=== PATIENT | female | born 1940 | race African-American/Black ===

== ENCOUNTER 2018-06-22 19:24 | Inpatient (IN) | payer OTHER ==
[2018-06-22 20:01] VITALS: BMI 26.4
[2018-06-22 21:36] LABS: BASO % 0.8 % (0-2.0); HEMOGLOBIN 9.5 GM/dL (10.7-15.3); LYMPH % 10.8 % (8-40); MCH 27.1 pg (25.7-33.7); MCHC 32.6 g/dl (32.0-36.0); MEAN CELL VOLUME 83.2 fl (80-96); MEAN PLT VOLUME 7.9 fl (7.5-11.1); MONO % 3.4 % (3.8-10.2); PLATELET COUNT 998 K/MM3 (134-434); RBC 3.48 M/mm3 (3.60-5.2); RDW 27.2 % (11.6-15.6); WHITE BLOOD COUNT 15.2 K/mm3 (4.0-10.0)
[2018-06-22 21:50] LABS: INR 1.12 (0.83-1.09); PROTHROMBIN TIME (PATIENT) 13.2 SEC (9.7-13.0)
[2018-06-22 21:53] LABS: ACTIVATED PTT 28.8 SECONDS (25.2-36.5)
--- NOTE | 2018-06-22 22:11 | PDOC ---
Attending Attestation - Physicial Exam PE: 06/22/18 22:55 GENERAL: Well-appearing, well-nourished. No apparent distress. HEENT: Normocephalic, atraumatic. PERRL, EOM intact. CARDIOVASCULAR: Normal S1, S2. Regular rate and rhythm. PULMONARY: Clear to auscultation bilaterally. ABDOMEN: Soft, non-distended, non-tender. +EXTREMITIES: Mild swelling to the dorsal surface of the right foot. SKIN: Warm, dry. No rash NEUROLOGICAL: No focal neurological deficits. - Medical Decision Making 06/23/18 Patient admitted to hospitalist team for further evaluation. <Odalys Elena - Last Filed: 06/23/18 01:19> - Resident Resident Name: Ravin Urbina - ED Attending Attestation I have performed the following: I have examined & evaluated the patient, The case was reviewed & discussed with the resident, I agree w/resident's findings & plan, Exceptions are as noted - HPI HPI: 06/22/18 22:10 77-year-old female took a 17 hour bus ride up from [place] and now has complaint of palpitations - Medical Decision Making 06/23/18 02:23 negative duplex doppler negative first trop elevated creatinine ,unable to obtain chest CTA will admit to telemetry for repeat trop, obtain VQ scan in am currently pt has no shortness of breath,no hypoxia, her heart rate has been stable in the mid 70s <Dia Nelson - Last Filed: 06/23/18 02:27> Attestations - Attestations 06/22/18 22:56 Documentation prepared by Odalys Elena, acting as senior medical billing specialist for Dia Nelson MD. <Odalys Elena - Last Filed: 06/23/18 01:19>
--- NOTE | 2018-06-22 22:17 | PDOC ---
History of Present Illness - General Chief Complaint: Palpitations Stated Complaint: WEAKNESS/PALPITATIONS Time Seen by Provider: 06/22/18 20:23 History Source: Patient Exam Limitations: No Limitations - History of Present Illness Initial Comments: 06/22/18 22:44 77 yo female from [place] (new to our ER) pmh DM (no medications required), HTN , HLD and s/p cardiac stent 2 months (only on 81 mg asa, no AC) ago presents to the ED for CP and leg swelling. Pt states she recently took a 17 hour bus trip from [place] and noted progressively worsening swelling bilateral LE, right worse than left but states she had sudden onset non exertional CP today, non radiating described as sharp. Past History - Past Medical History Allergies/Adverse Reactions: Allergies Allergy/AdvReac Type Severity Reaction Status Date / Time Penicillins Allergy Severe Swelling Verified 06/22/18 21:10 Home Medications: Ambulatory Orders Amlodipine Besylate [Norvasc -] 5 mg PO DAILY 06/22/18 Aspirin 81 mg PO DAILY 06/22/18 Cholecalciferol (Vitamin D3) [Vitamin D3] 1,000 unit PO DAILY 06/22/18 Tramadol HCl [Ultram] 50 mg PO DAILY PRN 06/22/18 Cardiac Disorders: Yes (Palpitations) COPD: No Diabetes: No (Controlled w/weight loss) HTN: Yes Hypercholesterolemia: No (Controlled w/weight loss) - Suicide/Smoking/Psychosocial Hx Smoking History: Never smoked Have you smoked in the past 12 months: No Information on smoking cessation initiated: No Hx Alcohol Use: No Drug/Substance Use Hx: No *Physical Exam - Vital Signs Last Vital Signs Temp Pulse Resp BP Pulse Ox 97.7 F 79 17 173/75 H 96 06/22/18 19:24 06/22/18 19:24 06/22/18 19:24 06/22/18 19:24 06/22/18 21:15 Moderate Sedation - Procedure Monitoring Vital Signs: Procedure Monitoring Vital Signs Temperature 97.7 F 06/22/18 19:24 Pulse Rate 79 06/22/18 19:24 Respiratory Rate 17 06/22/18 19:24 Blood Pressure 173/75 H 06/22/18 19:24 O2 Sat by Pulse Oximetry (%) 96 06/22/18 21:15 ED Treatment Course - LABORATORY CBC & Chemistry Diagram: 06/22/18 21:20 06/22/18 21:20 - ADDITIONAL ORDERS Additional order review: Laboratory Results 06/22/18 21:20 PT with INR 13.20 H INR 1.12 H PTT (Actin FS) 28.8 06/22/18 21:20 RBC 3.48 L MCV 83.2 MCHC 32.6 RDW 27.2 H MPV 7.9 Neutrophils % 83.0 H Lymphocytes % 10.8 Monocytes % 3.4 L Eosinophils % 2.0 Basophils % 0.8 - RADIOLOGY Radiology Studies Ordered: Category Date Time Status CHEST CTA [CT] Stat CT Scan 06/22/18 21:15 Ordered Medical Decision Making - Medical Decision Making 77 yo female recent PCI and recent travel presents with bilateral leg swelling and CP. Pt states she was told she has "slow heart beat" and had discussions with potentially putting a pace maker in with Cardiology in [place] EKG shows Mobitz type [address] changes DDX INLT: ACS, PE, DVT, CHF, arrhythmia 06/22/18 22:13 pt took 81 mg asa today with pain relief Vitals elevated BP (took medications today) otherwise WNL NAD, AOX3 CTA ordered however Cr elevated, duplex bilateral LE ordered, negative for DVT D dimer elevated, will admit for further cardiac assessment (ACS/CHF/PE) Pt accepted for admission to tele *DC/Admit/Observation/Transfer Diagnosis at time of Disposition: Ruled out for myocardial infarction, Chest pain, Renal insufficiency - Discharge Dispostion Condition at time of disposition: Fair Decision to Admit order: Yes - Referrals - Patient Instructions - Post Discharge Activity
[2018-06-22 22:18] LABS: ALK PHOS 135 U/L (45-117); ANION GAP 5 MMOL/L (8-16); BILIRUBIN,TOTAL 0.4 mg/dL (0.2-1); BLOOD UREA NITROGEN 23 mg/dL (7-18); CALCIUM 8.5 mg/dL (8.5-10.1); CHLORIDE 109 mmol/L (98-107); CO2 26 mmol/L (21-32); CREATININE 1.7 mg/dL (0.55-1.3); GLUCOSE,RANDOM 103 mg/dL (74-106); POTASSIUM 5.2 mmol/L (3.5-5.1); SGOT/AST 23 U/L (15-37); SGPT/ALT 20 U/L (13-61); SODIUM 140 mmol/L (136-145); TOT PROT 8.2 g/dl (6.4-8.2)
[2018-06-22 23:12] LABS: ANISOCYTOSIS 3+
[2018-06-22 23:13] LABS: PLATELET ESTIMATE SIGNIFICANT INCREASE
[2018-06-23] MEDS ORDERED: ASPIRIN 81 MG CHEWABLE TABLETS PO ONE (00:55)
--- NOTE | 2018-06-23 01:19 | PN ---
Teaching Attending Note Name of Resident: Dawson Haile ATTENDING PHYSICIAN STATEMENT I saw and evaluated the patient. I reviewed the resident's note and discussed the case with the resident. I agree with the resident's findings and plan as documented. SUBJECTIVE: Seen and examined; please refer to resident note for further historical discussion. Briefly, she is a 77 y/o female presenting from out of town; she lives in [place] and will be returning at the end of the month (arrived in [place] ~1 week ago). Her CC is chest pain; she states it's similar to when she got a cath in April (in [place], records pending). It occurred at rest; no exertional components. She tells me that she has a slow HR and EKG reveals av block; she is scheduled to see her primary home health care case manager when she returns home for pacemaker insertion. She is asymptomatic when I met with her. 10 sys ROS done and negative aside from HPI PMH, PSH, Family hx, Social hx reviewed Medication list reviewed; pending reconciliation OBJECTIVE: VS, labs, imaging reviewed NAD, AAO, resting in bed NC AT EOMI PERRLA RRR s1/2 no mgr Lungs CTAB, w/ sym exp Swollen feet but no tibial edema; no JVD CN2-12 wnl, no fnd Normal mood, appropriate behavior CXR reviewed EKG reviewed Old records pending ASSESSMENT AND PLAN: Patient presents with chest pain and has known CAD with recent reported cath in April done in [place]; records pending. 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 1) Chest Pain in adult -Rule out ACS; trend troponin and monitor telemetry. Should note slightly diminished CrCl. Check April cath report (states she didn't get any stents, etc. at that time). Consider CV consultation in AM. Checking echo for any wma' s. 2) Hx Bradycardia -Repeat EKG, monitor telemetry. HR normal now. Asx. Obtain old records to see discussion regarding planned pacer. 3) Suspected CAD -Need to obtain old history; will contact PCP, etc. Likely will need to be done in AM 4) HTN -Continue amlodipine 5) Leukocytosis with other heme abnormalities (thrombocytosis, etc.) -Obtain old records to compare; leukocytosis without fever with thrombocytosis to 900s. Low lycy and 3+ metamyelocytes. Trend CBC. Check influenza. Doesn' t appear infected. UA pending. 6) Elevated D-Dimer -Negative LE US; check VQ in AM given CrCl 7) ANATOLIY vs. CKD -Check old records; checking ALO and urine lytes 8) Elevated Alk Phos -Can check ggt in AM *Need to verify the rest of her medical history
[2018-06-23] MEDS ORDERED: ASPIRIN 81 MG CHEWABLE TABLETS ONE (02:02)
--- NOTE | 2018-06-23 02:46 | HP ---
CHIEF COMPLAINT: chest pain PCP: Dr. Omar Villela ( [place]) HISTORY OF PRESENT ILLNESS: Pt. is a pleasant 77 y.o. F presenting with chest pain that started on Friday. Pt. states that the chest pain happened at rest and has happened before in April. At that time PCI was performed but there was no thrombus noted, no stents were placed. Pt. states that she is scheduled for an appointment next month with her Rn Surgery to get a Holter monitor before pacemaker placement for her bradycardia. Pt. states that her chest pain is getting better now and that the shortness of breath happens only with the chest pain. Pt. endorses a productive Pt. states that her legs are swollen.Pt. endorses polyuria but denies any dysuria, fever or chills. Pt. endorses unsteady balance. Pt. denies any dizziness, lightheadedness, changes in vision or bowel habits. ER course was notable for: (1)EKG, Trop (2) (3) Recent Travel: Yes, Traveled from [place] via bus 2 weeks ago PAST MEDICAL HISTORY: Bradycardia, HTN, HLD, and DM PAST SURGICAL HISTORY: CCY Social History: Smoking: Cut down to ~2 cigs/ day for over 30 years Alcohol: Occasional drink Drugs: Denies Family History: Mom from CVA x 3, Dad has cancer of unknown origin Allergies Penicillins Allergy (Severe, Verified 06/22/18 21:10) Swelling HOME MEDICATIONS: Home Medications Medication Instructions Recorded Amlodipine Besylate [Norvasc -] 5 mg PO DAILY 06/22/18 Aspirin 81 mg PO DAILY 06/22/18 Cholecalciferol (Vitamin D3) 1,000 unit PO DAILY 06/22/18 [Vitamin D3] Tramadol HCl [Ultram] 50 mg PO DAILY PRN 06/22/18 REVIEW OF SYSTEMS CONSTITUTIONAL: Absent: fever, chills, diaphoresis, generalized weakness, malaise, loss of appetite, weight change HEENT: Absent: rhinorrhea, nasal congestion, throat pain, throat swelling, difficulty swallowing, mouth swelling, ear pain, eye pain, visual changes CARDIOVASCULAR: Present: chest pain, peripheral edema Absent: , syncope, palpitations, irregular heart rate, lightheadedness RESPIRATORY: Present: shortness of breath when chest pain occurs Absent: cough, , dyspnea with exertion, orthopnea, wheezing, stridor, hemoptysis GASTROINTESTINAL:Absent: abdominal pain, abdominal distension, nausea, vomiting , diarrhea, constipation, melena, hematochezia GENITOURINARY: Absent: dysuria, frequency, urgency, hesitancy, hematuria, flank pain, genital pain MUSCULOSKELETAL: Absent: myalgia, arthralgia, joint swelling, back pain, neck pain SKIN: Absent: rash, itching, pallor HEMATOLOGIC/IMMUNOLOGIC: Absent: easy bleeding, easy bruising, lymphadenopathy, frequent infections ENDOCRINE: Absent: unexplained weight gain, unexplained weight loss, heat intolerance, cold intolerance NEUROLOGIC: Absent: headache, focal weakness or paresthesias, dizziness, unsteady gait, seizure, mental status changes, bladder or bowel incontinence PSYCHIATRIC: Absent: anxiety, depression, suicidal or homicidal ideation, hallucinations. PHYSICAL EXAMINATION Vital Signs - 24 hr 06/22/18 06/22/18 19:24 21:15 Temperature 97.7 F Pulse Rate 79 Respiratory 17 Rate Blood Pressure 173/75 H O2 Sat by Pulse 96 96 Oximetry (%) GENERAL: Awake, alert, and fully oriented, in no acute distress. HEAD: Normal with no signs of trauma. EYES: sclera anicteric, conjunctiva clear EARS, NOSE, THROAT: Ears normal. Moist mucous membranes. NECK: Normal range of motion, supple without lymphadenopathy, JVD, or masses. LUNGS: Diffuse decreased breath sounds, bilateral bibasilar crackles, No accessory muscle use. HEART: Regular rate and rhythm, normal S1 and S2 ABDOMEN: Soft, nontender, not distended, normoactive bowel sounds, no guarding, no rebound MUSCULOSKELETAL: Normal range of motion at all joints. No bony deformities or tenderness. No CVA tenderness. UPPER EXTREMITIES: 2+ radial pulses, warm, well-perfused. No cyanosis. LOWER EXTREMITIES: Warm, well-perfused. No calf tenderness. R>L edema NEUROLOGICAL: Cranial nerves II-XII intact. Normal speech. Gait not assessed PSYCHIATRIC: Cooperative. Good eye contact. Appropriate mood and affect. SKIN: Warm, dry, increased turgor, normal capillary refill. Laboratory Results - last 24 hr 06/22/18 06/22/18 06/22/18 21:20 21:20 21:20 WBC 15.2 H RBC 3.48 L Hgb 9.5 L Hct 29.0 L MCV 83.2 MCH 27.1 MCHC 32.6 RDW 27.2 H Plt Count 998 H MPV 7.9 Absolute Neuts (auto) 12.6 H Neutrophils % 83.0 H Neutrophils % (Manual) 78.0 Band Neutrophils % 6.0 Lymphocytes % 10.8 Lymphocytes % (Manual) 6.0 L Monocytes % 3.4 L Monocytes % (Manual) 2 L Eosinophils % 2.0 Eosinophils % (Manual) 1.0 Basophils % 0.8 Basophils % (Manual) 0.0 Nucleated RBC % 0 Metamyelocytes 3 H Hypochromia 1+ Platelet Estimate Significant increase Platelet Comment Large platelets Anisocytosis 3+ PT with INR 13.20 H INR 1.12 H PTT (Actin FS) 28.8 D-Dimer Sodium 140 Potassium 5.2 H Chloride 109 H Carbon Dioxide 26 Anion Gap 5 L BUN 23 H Creatinine 1.7 H Creat Clearance w eGFR 29.22 Random Glucose 103 Calcium 8.5 Total Bilirubin 0.4 AST 23 ALT 20 Alkaline Phosphatase 135 H Creatine Kinase 83 Troponin I < 0.02 Total Protein 8.2 Albumin 3.0 L 06/22/18 22:30 WBC RBC Hgb Hct MCV MCH MCHC RDW Plt Count MPV Absolute Neuts (auto) Neutrophils % Neutrophils % (Manual) Band Neutrophils % Lymphocytes % Lymphocytes % (Manual) Monocytes % Monocytes % (Manual) Eosinophils % Eosinophils % (Manual) Basophils % Basophils % (Manual) Nucleated RBC % Metamyelocytes Hypochromia Platelet Estimate Platelet Comment Anisocytosis PT with INR INR PTT (Actin FS) D-Dimer 1978 H Sodium Potassium Chloride Carbon Dioxide Anion Gap BUN Creatinine Creat Clearance w eGFR Random Glucose Calcium Total Bilirubin AST ALT Alkaline Phosphatase Creatine Kinase Troponin I Total Protein Albumin ASSESSMENT/PLAN: Pt. is a 77 y.o. F w/ PMHx. of Bradycardia, HTN, HLD, and DM presents with intermittent chest pain for the last 3 days. #R/o ACS EKG noted f/u Echo D-dimers 1978- low suspicion for DVT/PE--> CTA ordered f/u Cardiac records from Cath in April #Productive Cough likely 2/2 mild COPD Influenza negative HIV pending f/u V/Q scan, CXR normal #ANATOLIY IVF F/u Renal US Urine Urea, Urine Creatinine, Urine Sodium, HIV, ESR, CRP (ESR can be elevated in the elderly) f/u old records #HTN c/w Amlodipine #FEN IVF monitor electrolyes and replete as needed Regular Diet #DVT Ppx Hep SQ Visit type - Emergency Visit Emergency Visit: Yes ED Registration Date: 06/23/18 Care time: The patient presented to the Emergency Department on the above date and was hospitalized for further evaluation of their emergent condition. - New Patient This patient is new to me today: Yes Date on this admission: 06/23/18 - Critical Care Critical Care patient: No
[2018-06-23 03:18] LABS: CHOLESTEROL 96 mg/dL (50-200); HDL CHOLESTEROL 36 mg/dL (40-60); TRIGLYCERIDES 53 mg/dL (0-150)
[2018-06-23 07:00] VITALS: TEMP 98.2
[2018-06-23 08:19] LABS: BASO % 0.9 % (0-2.0); EOS % 2.1 % (0-4.5); HEMATOCRIT 26.1 % (32.4-45.2); HEMOGLOBIN 8.6 GM/dL (10.7-15.3); LYMPH % 10.8 % (8-40); MCH 27.2 pg (25.7-33.7); MCHC 33.1 g/dl (32.0-36.0); MEAN CELL VOLUME 82.3 fl (80-96); MEAN PLT VOLUME 8.6 fl (7.5-11.1); MONO % 4.9 % (3.8-10.2); NEUT % 81.3 % (42.8-82.8); PLATELET COUNT 973 K/MM3 (134-434); RBC 3.17 M/mm3 (3.60-5.2); RDW 26.7 % (11.6-15.6); WHITE BLOOD COUNT 13.6 K/mm3 (4.0-10.0)
[2018-06-23] MEDS ORDERED: ACETAMINOPHEN 325 MG TABLET (FP) PO PRN (08:42)
[2018-06-23 08:46] LABS: ANION GAP 4 MMOL/L (8-16); BLOOD UREA NITROGEN 19 mg/dL (7-18); CALCIUM 8.2 mg/dL (8.5-10.1); CHLORIDE 112 mmol/L (98-107); CO2 24 mmol/L (21-32); CREATININE 1.5 mg/dL (0.55-1.3); GLUCOSE,RANDOM 82 mg/dL (74-106); POTASSIUM 5.1 mmol/L (3.5-5.1); SODIUM 141 mmol/L (136-145)
[2018-06-23] MEDS ORDERED: amLODIPine BESYLATE 5 MG TABLET (FP) PO SCH (10:00)
[2018-06-23] MEDS ORDERED: ASPIRIN 81 MG CHEWABLE TABLETS PO SCH (10:00)
[2018-06-23] MEDS ORDERED: CHOLECALCIFEROL (VITAMIN D3) 1,000 UNIT TABLET (FP) PO SCH (10:00)
[2018-06-23] MEDS ORDERED: ACETAMINOPHEN 325 MG TABLET (FP) ONE (10:14)
[2018-06-23] MEDS ORDERED: SODIUM CHLORIDE 1,000 ML IV SCH (11:00)
[2018-06-23 11:33] LABS: ANISOCYTOSIS 2+; MACROCYTOSIS 1+; OVALOCYTE 2+; PLATELET ESTIMATE INCREASED
--- NOTE | 2018-06-23 11:45 | ECHO ---
Name: JAM PARTH Exam:Adult Echocardiogram Study Date: 06/23/2018 07:47 AM Age: 77 yrs Reason For Study: checking for WMAs Height: 67 in Weight: 174 lb BSA: 1.9 m2 MMode/2D Measurements & Calculations IVSd: 0.81 cm Ao root diam: 3.7 cm LVIDd: 5.4 cm LA dimension: 3.8 cm LVIDs: 3.7 cm ACS: 2.1 cm LVPWd: 1.0 cm IVSs: 1.2 cm LVPWs: 1.7 cm EDV(Teich): 140.4 ml ESV(Teich): 57.2 ml LVOT diam: 2.1 cm Doppler Measurements & Calculations MV E max fer: 91.8 cm/sec Ao V2 max: 166.6 cm/sec MV A max fer: 88.4 cm/sec Ao max P.1 mmHg MV E/A: 1.0 Ao V2 mean: 118.5 cm/sec Ao mean P.2 mmHg Ao V2 VTI: 37.2 cm MEÑO(I,D): 2.0 cm2 MEÑO(V,D): 1.9 cm2 LV V1 max P.7 mmHg MR max fer: 432.4 cm/sec LV V1 mean P.0 mmHg MR max P.9 mmHg LV V1 max: 96.1 cm/sec LV V1 mean: 66.6 cm/sec LV V1 VTI: 22.1 cm SV(LVOT): 74.0 ml TR max fer: 278.3 cm/sec TR max P.0 mmHg Med Peak E' Fer: 5.2 cm/sec Med E/e': 17.8 Lat Peak E' Fer: 7.4 cm/sec Lat E/e': 12.4 Procedure A two-dimensional transthoracic echocardiogram with color flow and Doppler was performed. The patient was in normal sinus rhythm during the exam. Left Ventricle Left ventricular systolic function is normal. Ejection Fraction = 59. E/A reversal consistent with bu t not diagnostic of poor LV compliance. Right Ventricle The right ventricle is mildly dilated. The right ventricular systolic function is normal. Atria The left atrial size is normal. The right atrium is mildly dilated. Mitral Valve The mitral valve is normal. There is mild mitral regurgitation. Tricuspid Valve The tricuspid valve is normal. There is moderate to severe tricuspid regurgitation. Right ventricular systolic pressure is elevated at 40-50mmHg. There is mild pulmonary hypertension. Aortic Valve The aortic valve is normal in structure and function. Trace aortic regurgitation. Pulmonic Valve The pulmonic valve is not well visualized. The pulmonic valve is not well seen, but is grossly normal . There is no pulmonic valvular regurgitation. Great Vessels The aortic root is normal size. Pericardium/Pleura There is no pericardial effusion. Interpretation Summary Left ventricular systolic function is normal. E/A reversal consistent with but not diagnostic of poor LV compliance The right ventricle is mildly dilated. The right ventricular systolic function is normal. The right atrium is mildly dilated. There is mild mitral regurgitation. There is moderate to severe tricuspid regurgitation. There is mild pulmonary hypertension. Trace aortic regurgitation. There is no pericardial effusion. MD Pablo Rivas 06/23/2018 11:44 AM
--- NOTE | 2018-06-23 13:34 | EKG ---
Test Reason : Blood Pressure : / mmHG Vent. Rate : 067 BPM Atrial Rate : 067 BPM P-R Int : 182 ms QRS Dur : 088 ms QT Int : 400 ms P-R-T Axes : 059 037 043 degrees QTc Int : 422 ms SINUS RHYTHM WITH MARKED SINUS ARRHYTHMIA VOLTAGE CRITERIA FOR LEFT VENTRICULAR HYPERTROPHY ABNORMAL ECG NO PREVIOUS ECGS AVAILABLE Confirmed by MD GIORGIO, ELISABET ([id number]) on 06/23/2018 1:33:56 PM Referred By: Confirmed By:ELISABET ALVARES MD
--- NOTE | 2018-06-23 13:43 | CON.PULM ---
Consult Consult Specialty:: PULMONARY Referred by:: Dr Preston Reason for Consultation:: v/q scan - History of Present Illness Chief Complaint: chest pain History of Present Illness: 77yo female with h/o HTN, DM, hyperlipidemia, bradycardia who presented with episode of chest discomfort and shortness of breath. Describes her chest discomfort as a squeezing type pain associated with shortness of breath. She has had these episodes in the past and had a recent cardiac catheterization. She states she usually takes an ASA and the pain usually goes away but the ambulance had already arrived by the time the pain resolved this time. Currently asymptomatic, feels at her baseline. She used to be on SL nitroglycerin but she lost a significant amount of weight and her medications were changed at that time. She traveled from [place] about 2 weeks ago. She does smoker about 2 cigarettes/day. No family or personal history of clots. LE dopplers negative for DVT. - History Source History Provided By: Patient, Medical Record Limitations to Obtaining History: No Limitations - Past Medical History Cardio/Vascular: Yes: HTN, Hyperlipdemia Endocrine: Yes: Diabetes Mellitus - Alcohol/Substance Use Hx Alcohol Use: No - Smoking History Smoking history: Never smoked Have you smoked in the past 12 months: No Home Medications - Allergies Allergies/Adverse Reactions: Allergies Allergy/AdvReac Type Severity Reaction Status Date / Time Penicillins Allergy Severe Swelling Verified 06/22/18 21:10 - Home Medications Home Medications: Ambulatory Orders Amlodipine Besylate [Norvasc -] 5 mg PO DAILY 06/22/18 Aspirin 81 mg PO DAILY 06/22/18 Cholecalciferol (Vitamin D3) [Vitamin D3] 1,000 unit PO DAILY 06/22/18 Tramadol HCl [Ultram] 50 mg PO DAILY PRN 06/22/18 Review of Systems - Review of Systems Constitutional: denies: Chills, Fever Eyes: denies: Recent Change in Vision HENT: denies: Nasal Congestion, Throat Pain Neck: denies: Stiffness, Tenderness Cardiovascular: reports: Chest Pain, Edema, Shortness of Breath. denies: Palpitations Respiratory: denies: Cough, Hemoptysis, Wheezing Gastrointestinal: denies: Abdominal Pain, Nausea, Vomiting Genitourinary: denies: Dysuria, Hematuria Neurological: denies: Dizziness, Headache Endocrine: denies: Unexplained Weight Loss Physical Exam Vital Sings: Vital Signs Temperature 98.2 F 06/23/18 06:59 Pulse Rate 61 06/23/18 10:00 Respiratory Rate 18 06/23/18 10:00 Blood Pressure 114/60 06/23/18 10:00 O2 Sat by Pulse Oximetry (%) 98 06/23/18 10:00 Constitutional: Yes: Calm Eyes: Yes: Conjunctiva Clear, EOM Intact HENT: Yes: Atraumatic, Normocephalic Neck: Yes: Supple, Trachea Midline Cardiovascular: Yes: Regular Rate and Rhythm Respiratory: Yes: Regular, Diminished (decreased breath sounds at the bases) ...Clubbing: No Gastrointestinal: Yes: Normal Bowel Sounds, Soft. No: Tenderness Edema: Yes Labs: CBC, BMP 06/23/18 08:10 06/23/18 08:10 Imaging - Results Chest X-ray: Report Reviewed, Image Reviewed (no infiltrates) Problem List - Problems (1) Chest pain Code(s): R07.9 - CHEST PAIN, UNSPECIFIED Assessment/Plan Chest Pain Acute Kidney Injury HTN DM Hyperlipidemia - clinical low suspicion for PE as atypical symptoms have resolved without treatment, pt not hypoxic or tachycardic and with negative doppler studies and cardiac markers - she has experienced these symptoms in the past for which a cardiac cath was performed - would f/u on cath results if possible - consider rheumatologic work up and age appropriate malignancy screening as outpt given her high ESR, CRP and could be etiology of her elevated D-dimer and renal disease - can defer V/Q scan at this time Thank you for this consult John Krishnan MD
[2018-06-23] MEDS ORDERED: HEPARIN NA (PORCINE) 5,000 UNITS/ML 1ML VIAL SQ SCH (14:00)
--- NOTE | 2018-06-23 14:07 | PN ---
Physical Exam: SUBJECTIVE: Patient seen and examined at bedside no acute events overnight; patient states she is no longer having chest pain but is experiencing a productive cough; denies CP/SOB/N/V fevers or chills OBJECTIVE: Vital Signs Period Temp Pulse Resp BP Sys/Zamora Pulse Ox Last 24 Hr 97.7 F-98.2 F 52-79 15-18 114-173/43-75 96-98 GENERAL: The patient is awake, alert, and fully oriented, in no acute distress. EYES: PEERLA; EOMI; no scleral icterus NECK:no JVD; no lymphadenopathy LUNGS: slight coarse breath sounds at the bases HEART: Regular rate and rhythm, S1, S2 without murmur, rub or gallop. ABDOMEN: soft; non-tender; non-distended +BS EXTREMITIES: 2+ pulses, warm, well-perfused, no edema. . PSYCH: Normal mood, normal affect. SKIN: Warm, dry, normal turgor, no rashes or lesions noted Laboratory Results - last 24 hr 06/22/18 06/22/18 06/22/18 21:20 21:20 21:20 WBC 15.2 H RBC 3.48 L Hgb 9.5 L Hct 29.0 L MCV 83.2 MCH 27.1 MCHC 32.6 RDW 27.2 H Plt Count 998 H MPV 7.9 Absolute Neuts (auto) 12.6 H Neutrophils % 83.0 H Neutrophils % (Manual) 78.0 Band Neutrophils % 6.0 Lymphocytes % 10.8 Lymphocytes % (Manual) 6.0 L Monocytes % 3.4 L Monocytes % (Manual) 2 L Eosinophils % 2.0 Eosinophils % (Manual) 1.0 Basophils % 0.8 Basophils % (Manual) 0.0 Myelocytes % (Man) Promyelocytes % (Man) Blast Cells % (Manual) Nucleated RBC % 0 Metamyelocytes 3 H Hypochromia 1+ Platelet Estimate Significant increase Platelet Comment Large platelets Polychromasia Poikilocytosis Anisocytosis 3+ Microcytosis Macrocytosis Ovalocytes Schistocytes ESR PT with INR 13.20 H INR 1.12 H PTT (Actin FS) 28.8 D-Dimer Sodium 140 Potassium 5.2 H Chloride 109 H Carbon Dioxide 26 Anion Gap 5 L BUN 23 H Creatinine 1.7 H Creat Clearance w eGFR 29.22 Random Glucose 103 Hemoglobin A1c % Calcium 8.5 Phosphorus Magnesium Total Bilirubin 0.4 GGT AST 23 ALT 20 Alkaline Phosphatase 135 H Creatine Kinase 83 Troponin I < 0.02 C-Reactive Protein Total Protein 8.2 Albumin 3.0 L Triglycerides Cholesterol Total LDL Cholesterol HDL Cholesterol TSH Influenza A (Rapid) Influenza B (Rapid) 06/22/18 06/23/18 06/23/18 22:30 02:30 02:30 WBC RBC Hgb Hct MCV MCH MCHC RDW Plt Count MPV Absolute Neuts (auto) Neutrophils % Neutrophils % (Manual) Band Neutrophils % Lymphocytes % Lymphocytes % (Manual) Monocytes % Monocytes % (Manual) Eosinophils % Eosinophils % (Manual) Basophils % Basophils % (Manual) Myelocytes % (Man) Promyelocytes % (Man) Blast Cells % (Manual) Nucleated RBC % Metamyelocytes Hypochromia Platelet Estimate Platelet Comment Polychromasia Poikilocytosis Anisocytosis Microcytosis Macrocytosis Ovalocytes Schistocytes ESR PT with INR INR PTT (Actin FS) D-Dimer 1979 H Sodium Potassium Chloride Carbon Dioxide Anion Gap BUN Creatinine Creat Clearance w eGFR Random Glucose Hemoglobin A1c % Calcium Phosphorus Magnesium Total Bilirubin GGT 27 AST ALT Alkaline Phosphatase Creatine Kinase Troponin I C-Reactive Protein Total Protein Albumin Triglycerides 53 Cholesterol 96 Total LDL Cholesterol 45 HDL Cholesterol 36 L TSH 0.90 Influenza A (Rapid) Influenza B (Rapid) 06/23/18 06/23/18 06/23/18 02:30 02:30 02:30 WBC RBC Hgb Hct MCV MCH MCHC RDW Plt Count MPV Absolute Neuts (auto) Neutrophils % Neutrophils % (Manual) Band Neutrophils % Lymphocytes % Lymphocytes % (Manual) Monocytes % Monocytes % (Manual) Eosinophils % Eosinophils % (Manual) Basophils % Basophils % (Manual) Myelocytes % (Man) Promyelocytes % (Man) Blast Cells % (Manual) Nucleated RBC % Metamyelocytes Hypochromia Platelet Estimate Platelet Comment Polychromasia Poikilocytosis Anisocytosis Microcytosis Macrocytosis Ovalocytes Schistocytes ESR 102 H PT with INR INR PTT (Actin FS) D-Dimer Sodium Potassium Chloride Carbon Dioxide Anion Gap BUN Creatinine Creat Clearance w eGFR Random Glucose Hemoglobin A1c % 5.3 Calcium Phosphorus Magnesium Total Bilirubin GGT AST ALT Alkaline Phosphatase Creatine Kinase Troponin I C-Reactive Protein 5.8 H Total Protein Albumin Triglycerides Cholesterol Total LDL Cholesterol HDL Cholesterol TSH Influenza A (Rapid) Influenza B (Rapid) 0306/23/18 06/23/18 02:30 02:30 08:10 WBC 13.6 H RBC 3.17 L Hgb 8.6 L Hct 26.1 L MCV 82.3 MCH 27.2 MCHC 33.1 RDW 26.7 H Plt Count 973 H MPV 8.6 Absolute Neuts (auto) 11.0 H Neutrophils % 81.3 Neutrophils % (Manual) 84.0 H Band Neutrophils % 1.0 Lymphocytes % 10.8 Lymphocytes % (Manual) 11.0 D Monocytes % 4.9 Monocytes % (Manual) 1 L Eosinophils % 2.1 Eosinophils % (Manual) 1.0 Basophils % 0.9 Basophils % (Manual) 0.0 Myelocytes % (Man) 1 Promyelocytes % (Man) 0 Blast Cells % (Manual) 0 Nucleated RBC % 0 Metamyelocytes 0 D Hypochromia 1+ Platelet Estimate Increased Platelet Comment Present Polychromasia 1+ Poikilocytosis 2+ Anisocytosis 2+ Microcytosis 1+ Macrocytosis 1+ Ovalocytes 2+ Schistocytes 1+ ESR PT with INR INR PTT (Actin FS) D-Dimer Sodium Potassium Chloride Carbon Dioxide Anion Gap BUN Creatinine Creat Clearance w eGFR Random Glucose Hemoglobin A1c % Calcium Phosphorus Magnesium Total Bilirubin GGT AST ALT Alkaline Phosphatase Creatine Kinase Troponin I < 0.02 C-Reactive Protein Total Protein Albumin Triglycerides Cholesterol Total LDL Cholesterol HDL Cholesterol TSH Influenza A (Rapid) Negative Influenza B (Rapid) Negative 06/23/18 08:10 WBC RBC Hgb Hct MCV MCH MCHC RDW Plt Count MPV Absolute Neuts (auto) Neutrophils % Neutrophils % (Manual) Band Neutrophils % Lymphocytes % Lymphocytes % (Manual) Monocytes % Monocytes % (Manual) Eosinophils % Eosinophils % (Manual) Basophils % Basophils % (Manual) Myelocytes % (Man) Promyelocytes % (Man) Blast Cells % (Manual) Nucleated RBC % Metamyelocytes Hypochromia Platelet Estimate Platelet Comment Polychromasia Poikilocytosis Anisocytosis Microcytosis Macrocytosis Ovalocytes Schistocytes ESR PT with INR INR PTT (Actin FS) D-Dimer Sodium 141 Potassium 5.1 Chloride 112 H Carbon Dioxide 24 Anion Gap 4 L BUN 19 H Creatinine 1.5 H Creat Clearance w eGFR 33.76 Random Glucose 82 Hemoglobin A1c % Calcium 8.2 L Phosphorus 4.0 Magnesium 2.0 Total Bilirubin GGT AST ALT Alkaline Phosphatase Creatine Kinase Troponin I C-Reactive Protein Total Protein Albumin Triglycerides Cholesterol Total LDL Cholesterol HDL Cholesterol TSH Influenza A (Rapid) Influenza B (Rapid) Active Medications Generic Name Dose Route Start Last Admin Trade Name Coby PRN Reason Stop Dose Admin Acetaminophen 650 mg 06/23/18 08:42 06/23/18 10:47 Tylenol - PO 650 mg Q6H PRN Administration Fever Or Pain Amlodipine Besylate 5 mg 06/23/18 10:00 06/23/18 10:00 Norvasc - PO 5 mg DAILY MYKE Administration Aspirin 81 mg 06/23/18 10:00 06/23/18 10:00 Asa - PO 81 mg DAILY MYKE Administration Cholecalciferol 1,000 unit 06/23/18 10:00 06/23/18 10:00 Vitamin D3 - PO 1,000 unit DAILY MYKE Administration Heparin Sodium (Porcine) 5,000 unit 06/23/18 14:00 Heparin - SQ TID MYKE Sodium Chloride 1,000 mls @ 83 mls/hr 06/23/18 11:00 06/23/18 12:29 Normal Saline - IV 83 mls/hr ASDIR MYKE Administration ASSESSMENT/PLAN: Pt. is a 77 y.o. F w/ PMHx. of Bradycardia, HTN, HLD, and DM presents with intermittent chest pain for the last 3 days. #R/o ACS EKG noted: repeat EKG echo: normal LV systolic function/RV mild dilation; mild MR, moderate-severe TR cardiac cath results : 50 percent stensois of LAD- no intervetion necessary #Leukocytosis/Thrombocytosis this is not new; patient has been seeing a heme-onc doctor patient is NEGRITA-2 positibe #Productive Cough likely 2/2 mild COPD Influenza negative HIV pending pulm saw patient; no need for V/Q; #ANATOLIY IVF F/u Renal US; no evidence of hydro seen Urine Urea, Urine Creatinine, Urine Sodium, HIV, ESR, CRP (ESR can be elevated in the elderly) f/u old records #HTN c/w Amlodipine 5 #FEN IVF monitor electrolyes and replete as needed Regular Diet #DVT Ppx Hep SQ
--- NOTE | 2018-06-23 14:08 | CON.CARD ---
Consult Consult Specialty:: Cardiology Referred by:: Hospitalist Reason for Consultation:: Cardiac evaluation - History of Present Illness Chief Complaint: Chest pain History of Present Illness: Patient is a 77 year old female with underlying history of HTN, hypercholesterolemia and DM who presents with complaints of left sided substernal chest pressure and shortness of breath. She denies radiation to arm or jaw. She has had cardiac catheterization in [place] recently and was told that she did not have any obstructive coronary artery disease. Her doctor in [place] stopped her lipid lowering medication and diabetes medications as her numbers were well controlled. She currently denies chest pain, SOB or palpitations. She denies paroxysmal nocturnal dyspnea or orthopnea. She denies fever or chills. She denies nausea, vomiting, diarrhea or abdominal pain. She denies headache or lightheadedness. She is visiting [place] from [place]. - History Source History Provided By: Patient, Medical Record Limitations to Obtaining History: No Limitations - Past Medical History Cardio/Vascular: Yes: HTN, Hyperlipdemia Endocrine: Yes: Diabetes Mellitus - Alcohol/Substance Use Hx Alcohol Use: No - Smoking History Smoking history: Never smoked Have you smoked in the past 12 months: No Home Medications - Allergies Allergies/Adverse Reactions: Allergies Allergy/AdvReac Type Severity Reaction Status Date / Time Penicillins Allergy Severe Swelling Verified 06/22/18 21:10 - Home Medications Home Medications: Ambulatory Orders Amlodipine Besylate [Norvasc -] 5 mg PO DAILY 06/22/18 Aspirin 81 mg PO DAILY 06/22/18 Cholecalciferol (Vitamin D3) [Vitamin D3] 1,000 unit PO DAILY 06/22/18 Tramadol HCl [Ultram] 50 mg PO DAILY PRN 06/22/18 Family Disease History - Family Disease History Other Family History: History of malignancy (unknown) and DM Review of Systems - Review of Systems Constitutional: denies: Chills, Fever Cardiovascular: reports: Chest Pain, Shortness of Breath. denies: Palpitations Respiratory: reports: SOB. denies: Cough, Hemoptysis, Orthopnea, PND, Snoring, SOB on Exertion, Wheezing Gastrointestinal: denies: Abdominal Pain, Constipation, Diarrhea, Melena, Nausea , Rectal Bleeding, Vomiting Genitourinary: denies: Dysuria, Hematuria Neurological: denies: Dizziness, Headache, Seizure, Syncope Vital Signs: Vital Signs Temperature 98.2 F 06/23/18 06:59 Pulse Rate 61 06/23/18 10:00 Respiratory Rate 18 06/23/18 10:00 Blood Pressure 114/60 06/23/18 10:00 O2 Sat by Pulse Oximetry (%) 98 06/23/18 10:00 Eyes: Yes: PERRL HENT: Yes: Atraumatic Neck: Yes: Supple Respiratory: Yes: CTA Bilaterally Gastrointestinal: Yes: Normal Bowel Sounds, Soft. No: Tenderness Cardiovascular: Yes: Regular Rate and Rhythm JVD: No PMI: Non-Displaced Heart Sounds: Yes: S1, S2 Murmur: No: Systolic Murmur Edema: No - Other Data Labs, Other Data: CBC, BMP 06/23/18 08:10 06/23/18 08:10 INR, PTT INR 1.12 (0.83-1.09) H 06/22/18 21:20 Troponin, BNP 06/22/18 06/23/18 21:20 02:30 Troponin I < 0.02 < 0.02 Sinus rhythm with sinus arrhythmia Echo: Report Reviewed (Normal LV systolic function, moderate to severe TR, mild MR) Problem List - Problems (1) HTN (hypertension) Code(s): I10 - ESSENTIAL (PRIMARY) HYPERTENSION (2) Hypercholesterolemia Code(s): E78.00 - PURE HYPERCHOLESTEROLEMIA, UNSPECIFIED (3) Diabetes mellitus Code(s): E11.9 - TYPE 2 DIABETES MELLITUS WITHOUT COMPLICATIONS (4) Chest pain Code(s): R07.9 - CHEST PAIN, UNSPECIFIED (5) Renal insufficiency Code(s): N28.9 - DISORDER OF KIDNEY AND URETER, UNSPECIFIED (6) Ruled out for myocardial infarction Code(s): Z03.89 - ENCNTR FOR OBS FOR OTH SUSPECTED DISEASES AND COND RULED OUT Assessment/Plan 1. Chest pain syndrome 2. ? Non-obstructive CAD 3. HTN 4. Hypercholesterolemia 5. DM 6. Tricuspid valve regurgitation PLAN: 1. Troponins negative 2 sets 2. Continue Amlodipine 3. Continue ASA 4. Echocardiography reviewed 5. If patient remains asymptomatic, may be discharged cardiac standpoint and follow up with her automation specialist and PMD in [place] upon return 6. Need to follow up on cardiac catheterization report from [place] Mikel Cardenas MD
[2018-06-23] MEDS ORDERED: HEPARIN NA (PORCINE) 5,000 UNITS/ML 1ML VIAL ONE (16:23)
--- NOTE | 2018-06-23 16:37 | PN ---
Teaching Attending Note Name of Resident: Radha Villar ATTENDING PHYSICIAN STATEMENT I saw and evaluated the patient. I reviewed the resident's note and discussed the case with the resident. I agree with the resident's findings and plan as documented. SUBJECTIVE: No STORY , no CP at time of evaluation 10 am . No fever or chills. CP is similar to the pain that triggered her recent cath. per her , no stents were placed. No N/V. pain is not related to exertion or food intake. pain dose not radiates OBJECTIVE: NAD , dry MM CV: RRR , 3/6 Sm at LLSB . slight bulge in neck veins Lungs: CTAB Ext : no edema or erythema Abd: sfot, NT, Nd , NL BS ASSESSMENT AND PLAN: 77 y/o lady with h/o HTN, HLP, SSS, CKD , recent cath 05/02 who came form [place] to visit family, and presented to hospital with CP. 1- CP at rest: EKG reviewed. trop Neg.echo reviewed. - Team d/w her PCP and card: cath in 11/25 with 50 % stenosis of proximal LAD with no indication of stenting. - Also pcp reported GERD sx . EGD in 2013 showed esophageal dilation. - F/u with her own card as out pt - add PPI x 2 weeks 2- Elevated D-dimer. WELLS score for PE is 0. neg US for both legs . heme findings below might explain elevated d dimer - Pulm input apreciated. - cancer w/u as out pt 3- leukocytosis with thrombocytosis. per PCp , she has been having those for years. 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 - will refer to her mechanical drawing teacher 4- CKd: last cr at PCP office 2.4. dc IVF and f/u iw renal as outpt 5- HTN : [facility] Dr. villar walked patient , and found her to be steady dc home
--- NOTE | 2018-06-23 17:50 | DS ---
Physical Exam: SUBJECTIVE:Patient seen and examined at bedside no acute events overnight; patient states she is no longer having chest pain but is experiencing a productive cough; denies CP/SOB/N/V fevers or chills OBJECTIVE: Vital Signs Period Temp Pulse Resp BP Sys/Zamora Pulse Ox Last 24 Hr 97.7 F-98.2 F 52-79 15-18 114-173/43-75 96-99 PHYSICAL EXAM GENERAL: The patient is awake, alert, and fully oriented, in no acute distress. EYES: PEERLA; EOMI; no scleral icterus NECK:no JVD; no lymphadenopathy LUNGS: slight coarse breath sounds at the bases HEART: Regular rate and rhythm, S1, S2 without murmur, rub or gallop. ABDOMEN: soft; non-tender; non-distended +BS EXTREMITIES: 2+ pulses, warm, well-perfused, no edema. . PSYCH: Normal mood, normal affect. SKIN: Warm, dry, normal turgor, no rashes or lesions noted LABS Laboratory Results - last 24 hr 06/22/18 06/22/18 06/22/18 21:20 21:20 21:20 WBC 15.2 H RBC 3.48 L Hgb 9.5 L Hct 29.0 L MCV 83.2 MCH 27.1 MCHC 32.6 RDW 27.2 H Plt Count 998 H MPV 7.9 Absolute Neuts (auto) 12.6 H Neutrophils % 83.0 H Neutrophils % (Manual) 78.0 Band Neutrophils % 6.0 Lymphocytes % 10.8 Lymphocytes % (Manual) 6.0 L Monocytes % 3.4 L Monocytes % (Manual) 2 L Eosinophils % 2.0 Eosinophils % (Manual) 1.0 Basophils % 0.8 Basophils % (Manual) 0.0 Myelocytes % (Man) Promyelocytes % (Man) Blast Cells % (Manual) Nucleated RBC % 0 Metamyelocytes 3 H Hypochromia 1+ Platelet Estimate Significant increase Platelet Comment Large platelets Polychromasia Poikilocytosis Anisocytosis 3+ Microcytosis Macrocytosis Ovalocytes Schistocytes ESR PT with INR 13.20 H INR 1.12 H PTT (Actin FS) 28.8 D-Dimer Sodium 140 Potassium 5.2 H Chloride 109 H Carbon Dioxide 26 Anion Gap 5 L BUN 23 H Creatinine 1.7 H Creat Clearance w eGFR 29.22 Random Glucose 103 Hemoglobin A1c % Calcium 8.5 Phosphorus Magnesium Total Bilirubin 0.4 GGT AST 23 ALT 20 Alkaline Phosphatase 135 H Creatine Kinase 83 Troponin I < 0.02 C-Reactive Protein Total Protein 8.2 Albumin 3.0 L Triglycerides Cholesterol Total LDL Cholesterol HDL Cholesterol TSH Influenza A (Rapid) Influenza B (Rapid) 06/22/18 06/23/18 06/23/18 22:30 02:30 02:30 WBC RBC Hgb Hct MCV MCH MCHC RDW Plt Count MPV Absolute Neuts (auto) Neutrophils % Neutrophils % (Manual) Band Neutrophils % Lymphocytes % Lymphocytes % (Manual) Monocytes % Monocytes % (Manual) Eosinophils % Eosinophils % (Manual) Basophils % Basophils % (Manual) Myelocytes % (Man) Promyelocytes % (Man) Blast Cells % (Manual) Nucleated RBC % Metamyelocytes Hypochromia Platelet Estimate Platelet Comment Polychromasia Poikilocytosis Anisocytosis Microcytosis Macrocytosis Ovalocytes Schistocytes ESR PT with INR INR PTT (Actin FS) D-Dimer 1979 H Sodium Potassium Chloride Carbon Dioxide Anion Gap BUN Creatinine Creat Clearance w eGFR Random Glucose Hemoglobin A1c % Calcium Phosphorus Magnesium Total Bilirubin GGT 27 AST ALT Alkaline Phosphatase Creatine Kinase Troponin I C-Reactive Protein Total Protein Albumin Triglycerides 53 Cholesterol 96 Total LDL Cholesterol 45 HDL Cholesterol 36 L TSH 0.90 Influenza A (Rapid) Influenza B (Rapid) 06/23/18 06/23/18 06/23/18 02:30 02:30 02:30 WBC RBC Hgb Hct MCV MCH MCHC RDW Plt Count MPV Absolute Neuts (auto) Neutrophils % Neutrophils % (Manual) Band Neutrophils % Lymphocytes % Lymphocytes % (Manual) Monocytes % Monocytes % (Manual) Eosinophils % Eosinophils % (Manual) Basophils % Basophils % (Manual) Myelocytes % (Man) Promyelocytes % (Man) Blast Cells % (Manual) Nucleated RBC % Metamyelocytes Hypochromia Platelet Estimate Platelet Comment Polychromasia Poikilocytosis Anisocytosis Microcytosis Macrocytosis Ovalocytes Schistocytes ESR 102 H PT with INR INR PTT (Actin FS) D-Dimer Sodium Potassium Chloride Carbon Dioxide Anion Gap BUN Creatinine Creat Clearance w eGFR Random Glucose Hemoglobin A1c % 5.3 Calcium Phosphorus Magnesium Total Bilirubin GGT AST ALT Alkaline Phosphatase Creatine Kinase Troponin I C-Reactive Protein 5.8 H Total Protein Albumin Triglycerides Cholesterol Total LDL Cholesterol HDL Cholesterol TSH Influenza A (Rapid) Influenza B (Rapid) 06/23/18 06/23/18 06/23/18 02:30 02:30 08:10 WBC 13.6 H RBC 3.17 L Hgb 8.6 L Hct 26.1 L MCV 82.3 MCH 27.2 MCHC 33.1 RDW 26.7 H Plt Count 973 H MPV 8.6 Absolute Neuts (auto) 11.0 H Neutrophils % 81.3 Neutrophils % (Manual) 84.0 H Band Neutrophils % 1.0 Lymphocytes % 10.8 Lymphocytes % (Manual) 11.0 D Monocytes % 4.9 Monocytes % (Manual) 1 L Eosinophils % 2.1 Eosinophils % (Manual) 1.0 Basophils % 0.9 Basophils % (Manual) 0.0 Myelocytes % (Man) 1 Promyelocytes % (Man) 0 Blast Cells % (Manual) 0 Nucleated RBC % 0 Metamyelocytes 0 D Hypochromia 1+ Platelet Estimate Increased Platelet Comment Present Polychromasia 1+ Poikilocytosis 2+ Anisocytosis 2+ Microcytosis 1+ Macrocytosis 1+ Ovalocytes 2+ Schistocytes 1+ ESR PT with INR INR PTT (Actin FS) D-Dimer Sodium Potassium Chloride Carbon Dioxide Anion Gap BUN Creatinine Creat Clearance w eGFR Random Glucose Hemoglobin A1c % Calcium Phosphorus Magnesium Total Bilirubin GGT AST ALT Alkaline Phosphatase Creatine Kinase Troponin I < 0.02 C-Reactive Protein Total Protein Albumin Triglycerides Cholesterol Total LDL Cholesterol HDL Cholesterol TSH Influenza A (Rapid) Negative Influenza B (Rapid) Negative 06/23/18 08:10 WBC RBC Hgb Hct MCV MCH MCHC RDW Plt Count MPV Absolute Neuts (auto) Neutrophils % Neutrophils % (Manual) Band Neutrophils % Lymphocytes % Lymphocytes % (Manual) Monocytes % Monocytes % (Manual) Eosinophils % Eosinophils % (Manual) Basophils % Basophils % (Manual) Myelocytes % (Man) Promyelocytes % (Man) Blast Cells % (Manual) Nucleated RBC % Metamyelocytes Hypochromia Platelet Estimate Platelet Comment Polychromasia Poikilocytosis Anisocytosis Microcytosis Macrocytosis Ovalocytes Schistocytes ESR PT with INR INR PTT (Actin FS) D-Dimer Sodium 141 Potassium 5.1 Chloride 112 H Carbon Dioxide 24 Anion Gap 4 L BUN 19 H Creatinine 1.5 H Creat Clearance w eGFR 33.76 Random Glucose 82 Hemoglobin A1c % Calcium 8.2 L Phosphorus 4.0 Magnesium 2.0 Total Bilirubin GGT AST ALT Alkaline Phosphatase Creatine Kinase Troponin I C-Reactive Protein Total Protein Albumin Triglycerides Cholesterol Total LDL Cholesterol HDL Cholesterol TSH Influenza A (Rapid) Influenza B (Rapid) HOSPITAL COURSE: Date of Admission:06/23/18 77 y/o female with PMH of HTN, CAD< DM presented to the ED with complaints of chest pain that lasted about 2 hours yesterday. patient is from [place] and is visinting here for the past 2 weeks. she has had a cold/cough but other than that no other symptoms- her chest pain started yesterday it lasted about 2ish hours described as a pressure like sensation no radiation/nausea/vomiting she got nervous and cme. She had a cath back in november 2017 but did not require a cath. o arrival vitals stable, no EKG chnages, trop negative x3 . on labs she had leukocytosis and thrombocytosi in addition to eleavted cr. spoke to patients pcp- she is currently seeing a heme-onc doctor for her leukocytosis and she has a known hstroy of ckd. she was seen by sobeida here, she had a normal echo and she was stable for dc home. we also prescribed patient PPI since she does have a history of GERD symptoms./ Date of Discharge: 06/23/18 Minutes to complete discharge: 39 Discharge Summary Reason For Visit: RENAL INSUFFICIENCY CHEST PAIN Current Active Problems Chest pain (Acute) Ruled out for myocardial infarction (Acute) Diabetes mellitus (Chronic) HTN (hypertension) (Chronic) Hypercholesterolemia (Chronic) Renal insufficiency (Chronic) Condition: Stable - Instructions Diet, Activity, Other Instructions: You came to the emergency room with complaints of chest pain for the past day which has subsided. We did an echo of your heart. We had a commercial analyst and patient carrier come and evaluate you. Some of the levels on your complete blood count were elevated, which is in the process of being assessed by Dr. Mckenna, the cafeteria attendant already. Please resume all of your home medications we are prescribing you GERD medication to take daily Please follow up with Dr. Villela, within one week Please follow up with Dr. Flores, within one week Please follow up with Dr. Mckenna, your cafeteria attendant, within one week *if you begin to experience worsening chest pain, shortness of breath, nausea/ vomiting please return to the emergency room immediately Referrals: Omar Villela [Other] - 1 Week Sea Mckenna [Other] - 1 Week Masood Flores [Other] - 1 Week Disposition: HOME - Home Medications Comprehensive Discharge Medication List: Ambulatory Orders Amlodipine Besylate [Norvasc -] 5 mg PO DAILY 06/22/18 Aspirin 81 mg PO DAILY 06/22/18 Cholecalciferol (Vitamin D3) [Vitamin D3] 1,000 unit PO DAILY 06/22/18 Tramadol HCl [Ultram] 50 mg PO DAILY PRN 06/22/18 Omeprazole 20 mg PO DAILY #30 tablet. 06/23/18 Problem List - Problems (1) Chest pain Code(s): R07.9 - CHEST PAIN, UNSPECIFIED (2) HTN (hypertension) Code(s): I10 - ESSENTIAL (PRIMARY) HYPERTENSION (3) Hypercholesterolemia Code(s): E78.00 - PURE HYPERCHOLESTEROLEMIA, UNSPECIFIED This patient is new to me today: Yes Date on this admission: 06/23/18 Emergency Visit: Yes ED Registration Date: 06/23/18 Care time: The patient presented to the Emergency Department on the above date and was hospitalized for further evaluation of their emergent condition. Critical Care patient: No - Discharge Referral Referred to [facility] Med [facility] No
[2018-06-23 20:01] VITALS: BP 150/90; PULSE 86
== END 2018-06-23 19:53 | disposition home or self-care (01) | DRG 303 ==
LOC: JER 19:24 → JERBED 06-23 00:55 → OBSVTOIN 06-23 06:45 → J4W 06-23 17:01
PROVIDERS: ADMIT Internal Medicine; ATTEND Internal Medicine
DX: I25.10 Atherosclerotic heart disease of native coronary artery without angina pectoris (principal); N17.9 Acute kidney failure, unspecified; R07.89 Other chest pain; E78.5 Hyperlipidemia, unspecified; E11.9 Type 2 diabetes mellitus without complications; J44.9 Chronic obstructive pulmonary disease, unspecified; D72.829 Elevated white blood cell count, unspecified; I12.9 Hypertensive chronic kidney disease with stage 1 through stage 4 chronic kidney disease, or unspecified chronic kidney disease; N18.9 Chronic kidney disease, unspecified; I36.1 Nonrheumatic tricuspid (valve) insufficiency
CPT/HCPCS: 36415; 71045-TC-FY; 76775-TC; 80048; 80053; 80061; 82550; 82570; 82977; 83036; 83721; 83735; 84100; 84300; 84443; 84484; 85025; 85379; 85610; 85651; 85730; 86140; 87389; 87804; 93005; 93010; 93306-TC; 93970-TC; 99285-25; G0378; J1644; J7030